=== PATIENT | female | born 2000 | race American Indian/Alaskan Native ===

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

== ENCOUNTER 2019-02-26 17:26 | Emergency (ER) | payer SELFPAY ==
[2019-02-26 19:16] VITALS: BP 134/70
--- NOTE | 2019-02-26 19:42 | Emergency Department Report ---
[facility] [facility] Chief Complaint: Eye Problems Stated Complaint: RT EYE REDNESS Time Seen by Provider: 02/26/19 19:39 Side: Right Severity: moderate Symptoms: Yes Eye Itching, Yes Eye Redness, Yes Eye Pain, Yes Purulent Drainage, No Blurred Vision, No Preceding URI, No H/O Allergic Rhinitis, No Contact Lens Use, No Trauma, No Fever Other History: photophobia ED Review of Systems ROS: Stated complaint: RT EYE REDNESS Other details as noted in HPI Comment: All other systems reviewed and negative ED Past Medical Hx - Past Medical History Previous Medical History?: No Additional medical history: Obesity - Surgical History Past Surgical History?: No - Social History Smoking Status: Never Smoker Substance Use Type: None - Medications Home Medications: Home Medications Medication Instructions Recorded Confirmed Last Taken Type Ibuprofen [Motrin 800 MG tab] 800 mg PO Q8HR PRN #15 tablet 10/24/18 Unknown Rx Olopatadine HCl [Pataday 0.2%] 1 drop OP QDAY #1 bottle 02/26/19 Unknown Rx Tobramycin [Tobrex] 1 drop OP Q4H #1 bottle 02/26/19 Unknown Rx [facility] [facility] Exam - Exam General: Vital signs noted. No distress. Alert and acting appropriately. Eye Exam: Right Injection, Right Mucous Discharge, Right Purulent Discharge HEENT: Yes Nasal Congestion, No Pharyngeal Erythema Lungs: Yes Clear Lung Sounds, Yes Good Air Exchange, No Wheezes, No Stridor, No Nasal Flaring ED Course Vital Signs 02/26/19 19:14 Temperature 98.4 F Pulse Rate 95 H Respiratory 20 Rate Blood Pressure 134/70 O2 Sat by Pulse 100 Oximetry Critical care attestation.: If time is entered above; I have spent that time in minutes in the direct care of this critically ill patient, excluding procedure time. ED Disposition Clinical Impression: Conjunctivitis Disposition: DC-01 TO HOME OR SELFCARE Is pt being admited?: No Does the pt Need Aspirin: No Condition: Stable Instructions: Conjunctivitis (ED) Referrals: [facility] [Provider Group] - 3-5 Days
== END 2019-02-26 20:10 | disposition home or self-care (01) ==
LOC: ED 17:26
DX: H10.9 Unspecified conjunctivitis (principal)
CPT/HCPCS: 99282